=== PATIENT | female | born 1945 | race Caucasian/White ===

== ENCOUNTER 2016-08-26 04:01 | Emergency (ER) | payer MEDICARE, OTHER ==
[~2016-08-26 04:01] MED LIST: ASPIRIN CHEWABL81 MG PO; CEFDINIR300 MG PO; DUONEB 2.5-0.5M1 AMP NEB; EFFEXOR XR150 MG PO; HYDROCODON-ACE1 EAC2 PO; MEDROL 4MG DOSEP4 MG PO; NEURONTIN300 MG PO; PLAVIX75 MG PO; VITAMIN E400 UNI1 PO; ZESTRIL5 MG PO; ZITHROMAX500 MG PO; [UNRECOGNIZED DRUG - OTHER] PO
[2016-08-26 04:43] LABS: BASOPHIL 0.2 % (0-2); EOSINOPHIL 0.3 % (0-7); HCT 28.1 % (37.0-47.0); HGB 8.4 g/dl (12.5-16.0); LYMPHOCYTE 9.6 % (15-48); MCH 22.2 pg (25.0-31.0); MCHC 29.9 g/dL (32.0-36.0); MCV 74.3 fL (78.0-100.0); MONOCYTE 8.2 % (0-12); MPV 10.3 fL (6.0-9.5); NEUTROPHIL 81.7 % (41-80); PLT 277 K/uL (150-400); RBC 3.78 M/uL (4.20-5.40); RDW 18.3 % (11.5-14.0); WBC 14.8 K/uL (4.0-10.5)
[2016-08-26 04:47] LABS: BILIRUBIN NEGATIVE (NEGATIVE); BLOOD 1+ Ery/uL (NEGATIVE); CLARITY SLIGHTLY HAZY (CLEAR); COLOR YELLOW (YELLOW); GLUCOSE (U) NORMAL (NORMAL); KETONE (U) NEGATIVE (NEGATIVE); LEUKOCYTES NEGATIVE Leu/uL (NEGATIVE); NITRITE NEGATIVE (NEGATIVE); PROTEIN NEGATIVE (NEGATIVE); UROBILINOGEN 0.2 mg/dL (0.2-1.0)
[2016-08-26 05:03] LABS: BACTERIA 1+; URINARY RBC RARE
[2016-08-26 05:16] LABS: BILIRUBIN - TOTAL 0.2 mg/dL (0.1-1.0); CREATININE 1.4 mg/dL (0.5-1.0); GLOBULIN (CALCULATION) 2.7 g/dL (2.2-4.2); POTASSIUM 3.1 mmol/L (3.5-5.1); TOTAL PROTEIN 5.7 g/dL (6.4-8.3)
[2016-08-26 05:23] LABS: LACTIC ACID 1.7 mmol/L (0.5-2.2)
== END 2016-08-26 13:00 | disposition other institution (70) ==
LOC: FER 04:01
PROVIDERS: Emergency Medicine Emergency Medical Services
DX: A41.9 Sepsis, unspecified organism (principal); R65.20 Severe sepsis without septic shock; I95.9 Hypotension, unspecified; E87.6 Hypokalemia; R11.10 Vomiting, unspecified; R19.7 Diarrhea, unspecified; E86.9 Volume depletion, unspecified; J44.9 Chronic obstructive pulmonary disease, unspecified; F32.9 Major depressive disorder, single episode, unspecified; F41.9 Anxiety disorder, unspecified; R82.90 Unspecified abnormal findings in urine; F17.210 Nicotine dependence, cigarettes, uncomplicated; Z79.82 Long term (current) use of aspirin; Z79.899 Other long term (current) drug therapy; Z99.81 Dependence on supplemental oxygen; Z95.5 Presence of coronary angioplasty implant and graft
CPT/HCPCS: 36415; 71010; 80053; 81001; 83605; 83690; 84484; 85025; 87040; 87088; 87804; 87899; 93005; J2405; J2930; J3010